=== PATIENT | female | born 1945 | race Caucasian/White ===

== ENCOUNTER → 2017-08-28 | Outpatient (REF) | payer MEDICARE | LOC: M LAB REF 15:15 | DX: D49.2 Neoplasm of unspecified behavior of bone, soft tissue, and skin (principal) | CPT/HCPCS: 86140 ==

== ENCOUNTER → 2018-05-26 | Outpatient (REF) | payer MEDICARE | LOC: M LAB REF 11:30 | DX: I89.8 Other specified noninfective disorders of lymphatic vessels and lymph nodes (principal) | CPT/HCPCS: 88305 ==

== ENCOUNTER → 2020-03-07 | Outpatient (CLI) | payer MEDICARE ==
--- NOTE | 2020-03-07 12:36 | REP ---
BILATERAL WRIST SERIES: Four views of each wrist performed. No acute fracture or dislocation is seen. On the right, there is moderate joint space narrowing with subchondral sclerosis at the joint between the trapezium and base of 1st metacarpal. There is a small rounded calcific body at the margin of that joint which measures 3 mm in diameter. There is narrowing at the distal radioulnar joint. On the left, there is severe narrowing with subchondral sclerosis and mild spurring at the joint between the trapezium and base of 1st metacarpal with one or two calcific bodies at the margin of the joint measuring up to 4 mm. IMPRESSION: Degenerative changes with no fracture or dislocation. Electronically Signed by Alex Marx MD 03/08/2020 04:43 P
== END ==
LOC: M WUC 09:44
PROVIDERS: ATTEND Physician Assistant
DX: S60.212A Contusion of left wrist, initial encounter (principal); S60.211A Contusion of right wrist, initial encounter; Y92.9 Unspecified place or not applicable; Y93.9 Activity, unspecified; Y99.9 Unspecified external cause status

== ENCOUNTER → 2021-02-15 | Outpatient (CLI) | payer MEDICARE ==
--- NOTE | 2021-02-15 15:13 | REPMRS ---
Patient History The patient states she had a clinical breast exam in November 2020. Patient is postmenopausal. No known family history of cancer. No Hormone Replacement Therapy moderna vaccine 09/2020 right arm 10/2020 right arm, pt unable to remember exact dates. Patient states no breast complaints today. Patient has signed MRS History Sheet. Digital Woman Screen Mammo: February 15, 2021 - Exam #: [id number] Bilateral CC and MLO view(s) were taken. Technologist: RT [employer] Prior study comparison: April 08, 2019, bilateral digital mammo screening bilat, performed at [facility]. January 29, 2018, bilateral digital mammo screening bilat, performed at [facility]. FINDINGS: There are scattered fibroglandular densities. The Volpara volumetric breast density category is:B. There has been no change in the appearance of the mammogram from the prior studies. There is a mild amount of scattered fibroglandular density which is fairly symmetric. There is no interval development of dominant mass, architectural distortion, or grouped microcalcification suggestive of malignancy. 3-D tomosynthesis shows no additional findings. Assessment: BI-RADS/ACR category 1 mammogram. Negative Mammogram. Recommendation Routine screening mammogram of both breasts in 1 year (for women over age 40). This patient's [facility] Lifetime Breast Cancer Risk is estimated at 3.1 %. This mammogram was interpreted with the aid of an FDA-approved computer-aided dectection system. Electronically Signed By: Milo Babb MD 02/15/21 [id number]
--- NOTE | 2021-02-15 15:26 | DEXAMM ---
INDICATION: M81.0 AGE RELATED OSTEOPOROSIS. COMPARISON: 01/29/2018, 04/07/2003. TECHNIQUE: Bone density was measured using dual-energy x-ray absorptiometry (DEXA). FINDINGS: AP SPINE L1-L4 BMD 0.900 g/cm2 Young Adult T-Score -2.4 Age Matched Z-Score -0.6. LT FEMUR, TOTAL BMD 0.741 g/cm2 Young Adult T-Score -2.1 Age Matched Z-Score -0.4. LT NECK BMD 0.686 g/cm2 Young Adult T-Score -2.5 Age Matched Z-Score -0.6. RT FEMUR, TOTAL BMD 0.748 g/cm2 Young Adult T-Score -2.1 Age Matched Z-Score -0.4. RT NECK BMD 0.723 g/cm2 Young Adult T-Score -2.3 Age Matched Z-Score -0.4. IMPRESSION: There is low bone density of the spine. There is low bone density of the left hip. There is low bone density of the right hip. The density of the spine has increased 0.3% since the initial exam on 04/07/2003. The density of the spine increased 2.9% since most recent exam on 01/29/2018. The density of the left hip has decreased 13.6% since initial exam on 04/07/2003. The density of the left hip has decreased 2.8% since most recent exam on 01/29/2018. The density of the right hip has decreased 10.4% since the initial exam on 11/25/2005. The density of the right hip has increased 0.4% since the most recent exam on 01/29/2018. FOLLOW-UP: Recommendation for the next bone density exam: 2 years. <Electronically signed by Alex Marx > 02/15/21 [id number]
== END ==
LOC: M WHC 13:55
PROVIDERS: ATTEND Internal Medicine
DX: Z12.31 Encounter for screening mammogram for malignant neoplasm of breast (principal); M81.0 Age-related osteoporosis without current pathological fracture

== ENCOUNTER → 2021-02-27 | Outpatient (REF) | payer MEDICARE ==
[2021-02-28 17:10] LABS: PERCENT SATURATION 22.1 % (13.2-45.0)
== END ==
LOC: M LAB REF 16:25
PROVIDERS: ATTEND Internal Medicine
DX: D64.9 Anemia, unspecified (principal)

== ENCOUNTER → 2021-09-17 | Outpatient (REF) | payer MEDICARE ==
[2021-09-17 13:48] LABS: MALB URINE SIEMENS 38.6 MG/L; MAU/CREAT RATIO 13.9 MCG/MG (0.0-30.0)
== END ==
LOC: M LAB REF 12:17
PROVIDERS: ATTEND Internal Medicine
DX: R73.09 Other abnormal glucose (principal)

== ENCOUNTER → 2022-05-31 | Outpatient (CLI) | payer MEDICARE | LOC: M WHC 09:57 | PROVIDERS: ATTEND Internal Medicine | DX: Z12.31 Encounter for screening mammogram for malignant neoplasm of breast (principal) ==

== ENCOUNTER → 2022-06-11 | Outpatient (REF) | payer MEDICARE ==
[2022-06-12 15:14] LABS: PERCENT SATURATION 17.5 % (13.2-45.0)
== END ==
LOC: M LAB REF 12:29
PROVIDERS: ATTEND Internal Medicine
DX: D64.9 Anemia, unspecified (principal)

== ENCOUNTER → 2023-03-26 | Outpatient (CLI) | payer MEDICARE | LOC: M WHC 09:21 | PROVIDERS: ATTEND Internal Medicine | DX: M81.0 Age-related osteoporosis without current pathological fracture (principal); M85.89 Other specified disorders of bone density and structure, multiple sites ==

== ENCOUNTER → 2023-04-22 | Outpatient (CLI) | payer MEDICARE | LOC: M PLAIMG 09:16 | PROVIDERS: ATTEND Internal Medicine | DX: M25.551 Pain in right hip (principal) ==

== ENCOUNTER → 2023-12-11 | Outpatient (CLI) | payer MEDICARE | LOC: M WHC 13:30 | PROVIDERS: ATTEND Internal Medicine | DX: Z12.31 Encounter for screening mammogram for malignant neoplasm of breast (principal) ==

== ENCOUNTER → 2024-11-03 | Outpatient (REF) | payer MEDICARE ==
[2024-11-03 13:28] LABS: FERRITIN 183.7 NG/ML (7.3-270.7)
== END ==
LOC: M LAB REF 12:56
PROVIDERS: ATTEND Internal Medicine
DX: N18.32 Chronic kidney disease, stage 3b (principal)

== ENCOUNTER → 2024-12-20 | Outpatient (CLI) | payer MEDICARE | LOC: M WHC 14:12 | PROVIDERS: ATTEND Internal Medicine | DX: Z12.31 Encounter for screening mammogram for malignant neoplasm of breast (principal) ==

== ENCOUNTER 2025-02-22 09:51 | Day surgery (SDC) | payer MEDICARE ==
[~2025-02-22] VITALS: Ht 162.6 cm; Wt 83.5 kg
[~2025-02-22 09:51] MED LIST: AMLO1TAB25 PO; BIOT1CAP2 PO; BUSP5TA PO; CALC600T60 PO; D 101000 PO; FURO20TA2 PO; MAGN71.5 PO; METO50TA7 PO; OLME20TA50 PO; ROSU5TAB49 PO
[2025-02-22] MEDS ORDERED: ESMOLOL 100 MG/10 ML VIAL As Ordered ONE (12:49)
[2025-02-22] MEDS ORDERED: LIDOCAINE 2% 100 MG/5 ML SDV (FOR ANES.) As Ordered ONE (12:49)
[2025-02-22] MEDS ORDERED: PHENYLephrine 500MCG 5ML (100MCG/ML) SYRINGE As Ordered ONE (12:52)
[2025-02-22 13:03] VITALS: TEMP 97
[2025-02-22 13:27] VITALS: BP 160/74; O2SAT 92
[2025-02-22 15:01] LABS: CALCIUM LEVEL 8.5 MG/DL (8.3-10.6); CARBON DIOXIDE LEVEL 25.0 MMOL/L (20-31); CHLORIDE LEVEL 104.0 MMOL/L (98-107); CREATININE FOR GFR 1.24 MG/DL (0.55-1.30); GLOMERULAR FILTRATION RATE 44.5 (>39); MAGNESIUM LEVEL 1.9 MG/DL (1.8-2.4); POTASSIUM SERUM 4.2 MMOL/L (3.5-5.1); SODIUM LEVEL 142.0 MMOL/L (136-145)
== END 2025-02-22 15:11 | disposition home or self-care (01) ==
LOC: M OPP 09:51
PROVIDERS: ATTEND Surgery
DX: Z12.11 Encounter for screening for malignant neoplasm of colon (principal); K57.30 Diverticulosis of large intestine without perforation or abscess without bleeding; Z79.899 Other long term (current) drug therapy
CPT/HCPCS: 36415; 80048; 83735; 93005; G0121; J1805; J2371

== ENCOUNTER → 2025-06-28 | Outpatient (CLI) | payer MEDICARE | LOC: M WHC 14:52 | PROVIDERS: ATTEND Internal Medicine | DX: M81.0 Age-related osteoporosis without current pathological fracture (principal); Z53.9 Procedure and treatment not carried out, unspecified reason ==